=== PATIENT | male | born 1990 | race Caucasian/White ===

== ENCOUNTER 2017-09-21 17:19 | Emergency (ER) | payer SELFPAY, MEDICAID | END 2017-09-21 19:30 | disposition left against medical advice (07) | LOC: FTE 17:19 | DX: Z53.21 Procedure and treatment not carried out due to patient leaving prior to being seen by health care provider (principal) ==

== ENCOUNTER → 2018-02-11 | Emergency (ER) | payer MEDICAID ==
[~2018-02-11] MED LIST: CLINDAMYCIN 300 MG INJ IV
[2018-02-11] MEDS: KETOROLAC 30 MG INJ IV (20:31)
[2018-02-11] MEDS: CLINDAMYCIN 300 MG/D5W (PMX) 50 ML IVPB (20:36)
[2018-02-11 20:47] LABS: ADD MAN DIFF? NO
[2018-02-11 20:48] LABS: BASOPHIL # 0.1 10^3/ul (0.0-0.1); BASOPHILS % 1.1 % (0.0-2.0); EOSINOPHILS # 0.4 10^3/ul (0.0-0.5); HEMATOCRIT 41.8 % (42.0-52.0); HEMOGLOBIN 14.1 g/dl (14.0-18.0); LYMPHOCYTES # 2.1 10^3/ul (0.8-2.9); LYMPHOCYTES % 23.6 % (15.0-51.0); MEAN CORPUSCULAR HEMOGLOBIN 31.6 pg (29.0-33.0); MEAN CORPUSCULAR HGB CONC 33.7 g/dl (32.0-37.0); MEAN CORPUSCULAR VOLUME 93.7 fl (82.0-101.0); MEAN PLATELET VOLUME 8.8 fl (7.4-10.4); MONOCYTES % 10.7 % (0.0-11.0); NEUTROPHIL # 5.3 10^3/ul (1.6-7.5); NEUTROPHILS % 59.4 % (39.0-77.0); PLATELET COUNT 265 10^3/UL (140-415); RED BLOOD COUNT 4.46 10^6/ul (4.70-6.10)
[2018-02-11 21:05] LABS: ALANINE AMINOTRANSFERASE 112 IU/L (13-69); ALBUMIN/GLOBULIN RATIO 1.21; ALKALINE PHOSPHATASE 77 IU/L (42-121); ANION GAP 13 (8-16); ASPARTATE AMINO TRANSFERASE 79 IU/L (15-46); BILIRUBIN,INDIRECT 0.2 mg/dl (0-1.1); BILIRUBIN,TOTAL 0.2 mg/dl (0.2-1.3); BLOOD UREA NITROGEN 11 mg/dl (7-20); CALCIUM 8.9 mg/dl (8.4-10.2); CARBON DIOXIDE 27 mmol/L (21-31); CHLORIDE 107 mmol/L (97-110); CREATININE 0.86 mg/dl (0.61-1.24); GLUCOSE 84 mg/dl (70-220); POTASSIUM 4.4 mmol/L (3.5-5.1); SODIUM 143 mmol/L (135-144); TOTAL PROTEIN 7.3 g/dl (6.1-8.1)
[2018-02-11] MEDS: SOD CHLORIDE 0.9% 100 ML (21:21)
[2018-02-11] MEDS: IOHEXOL 300MG/ML 150 ML BTL (21:21)
== END | disposition home or self-care (01) ==
LOC: FTE 17:30
DX: K04.7 Periapical abscess without sinus (principal); F17.210 Nicotine dependence, cigarettes, uncomplicated
CPT/HCPCS: 70486; 80053; 85025; 96374; 96375; 99285-25

== ENCOUNTER 2018-03-10 23:04 | Emergency (ER) | payer MEDICAID | END 2018-03-11 02:50 | disposition home or self-care (01) | LOC: FTE 23:04 | DX: Z48.01 Encounter for change or removal of surgical wound dressing (principal); R40.2412 Glasgow coma scale score 13-15, at arrival to emergency department; Z87.891 Personal history of nicotine dependence | CPT/HCPCS: 99281 ==

== ENCOUNTER 2018-06-27 16:50 | Emergency (ER) | payer MEDICAID ==
[2018-06-27] MEDS: DIPHTH/TET/ACEL PERTUSS (ADULT) 0.5 ML VIAL IM* (18:36)
[2018-06-27] MEDS: CEFTRIAXONE 1 GM INJ IM (19:00)
[2018-06-27] MEDS: LIDOCAINE 1% (MPF) 5 ML VIAL SC (19:00)
[2018-06-27 19:03] LABS: ADD MAN DIFF? NO
[2018-06-27 19:06] LABS: WHITE BLOOD COUNT 5.2 10^3/ul (4.8-10.8)
[2018-06-27 19:06] LABS: BASOPHIL # 0.1 10^3/ul (0.0-0.1); BASOPHILS % 1.1 % (0.0-2.0); EOSINOPHILS # 0.6 10^3/ul (0.0-0.5); EOSINOPHILS % 10.5 % (0.0-7.0); HEMOGLOBIN 15.1 g/dl (14.0-18.0); LYMPHOCYTES # 1.9 10^3/ul (0.8-2.9); LYMPHOCYTES % 36.5 % (15.0-51.0); MEAN CORPUSCULAR HEMOGLOBIN 31.3 pg (29.0-33.0); MEAN CORPUSCULAR HGB CONC 34.3 g/dl (32.0-37.0); MEAN CORPUSCULAR VOLUME 91.1 fl (82.0-101.0); MEAN PLATELET VOLUME 9.6 fl (7.4-10.4); MONOCYTE # 0.6 10^3/ul (0.3-0.9); MONOCYTES % 10.7 % (0.0-11.0); NEUTROPHIL # 2.1 10^3/ul (1.6-7.5); PLATELET COUNT 273 10^3/UL (140-415); RED BLOOD COUNT 4.83 10^6/ul (4.70-6.10); RED CELL DISTRIBUTION WIDTH 12.7 % (11.5-14.5)
[2018-06-27] MEDS: LIDOCAINE 1% (MDV) 20 ML INJ SC (19:06)
[2018-06-27 19:24] LABS: ALANINE AMINOTRANSFERASE 16 IU/L (13-69); ALBUMIN 4.6 g/dl (3.3-4.9); ALBUMIN/GLOBULIN RATIO 1.43; ALKALINE PHOSPHATASE 96 IU/L (42-121); ANION GAP 9 (5-13); ASPARTATE AMINO TRANSFERASE 24 IU/L (15-46); BILIRUBIN,INDIRECT 0.4 mg/dl (0-1.1); BILIRUBIN,TOTAL 0.4 mg/dl (0.2-1.3); BLOOD UREA NITROGEN 18 mg/dl (7-20); CALCIUM 9.5 mg/dl (8.4-10.2); CARBON DIOXIDE 27 mmol/L (21-31); CHLORIDE 105 mmol/L (97-110); CREATININE 1.09 mg/dl (0.61-1.24); Estimated GFR > 60 mL/min (>60); GLUCOSE 85 mg/dl (70-220); POTASSIUM 3.8 mmol/L (3.5-5.1); SODIUM 141 mmol/L (135-144); TOTAL PROTEIN 7.8 g/dl (6.1-8.1)
== END 2018-06-27 21:59 | disposition home or self-care (01) ==
LOC: FTE 16:50
DX: L03.114 Cellulitis of left upper limb (principal); Z23 Encounter for immunization
CPT/HCPCS: 73090; 73090-RT; 73130-RT; 73550; 80053; 85025; 90471; 90715; 96372; 99284-25